=== PATIENT | male | born 1995 | race Caucasian/White ===

== ENCOUNTER 2019-11-24 09:20 | Outpatient (CLI) | payer BC, SELFPAY ==
--- NOTE | 2019-11-24 10:02 | MR_ITS ---
WS: [id number] MRI LUMBAR SPINE NONCONTRAST TECHNIQUE: Sagittal T1, T2 and STIR imaging. Axial T1 and T2 imaging. CLINICAL INFORMATION: HERNIATED LUMBAR DISC COMPARISON: None. FINDINGS: Mild lumbar curve. No acute compression. Disc bulging worse L4-L5 and L5-S1. Tiny annular tear at L4- 5. L1-L2: Normal. L2-L3: Mild annular bulging. Spinal canal and foramen are patent. Mild facet arthropathy. L3-L4: Mild annular bulging. Mild facet arthropathy. Slight narrowing of the right subarticular reces s. Mild right and no significant left foraminal narrowing. L4-L5: Central disc protrusion with a tiny annular tear. Mild central canal stenosis with impingement on the right greater than left subarticular recess and traversing L5 nerve roots. Mild right and no significant left foraminal narrowing. L5-S1: Prominent right pericentral disc protrusion. Additional Extruded disc fragment extending infer iorly to the S1-S2 level. Extruded disc material measures 2.5cm craniocaudal x 1.1 cm APx transverse 1.8 cm. Impingement on the right ventral thecal sac and traversing right S1 and S2 nerve roots. Mode rate to severe compression of the thecal sac at the S1 level. Mild to moderate right and no significa nt left foraminal narrowing. Mild facet arthropathy. Visualized pelvic bony structures: Normal. Paravertebral soft tissues: Normal. MR/MR lumbar spine wo con* [id number] IMPRESSION: 1. Right L5-S1 extruded disc fragment with inferior migration of disc material to the S1-S2 level. Extruded disc material measures 2.5 x 1.1 x 1.8 cm. This i mpinges the traversing right S1-S2 nerve roots with flattening of the thecal sa c with moderate to severe stenosis distally at the S1 level. 2. Additional broad-based central disc protrusion L5-S1 with moderate central canal stenosis and impingement on the right greater than left S1 nerve roots. 3. Annular bulging L3-4 with slight impingement on the traversing right L4 ner ve root. 4. Prominent central disc protrusion L4-5 with an annular tear and mild centra l canal stenosis. Impingement on the right greater than left traversing L5 nerv e roots.
== END 2019-11-24 09:21 | disposition home or self-care (01) ==
LOC: RADSHAW 09:26
PROVIDERS: Family Provider Family Medicine; PCP Family Medicine; Visit Provider Family Medicine
DX: M51.26 Other intervertebral disc displacement, lumbar region (principal); M51.27 Other intervertebral disc displacement, lumbosacral region
CPT/HCPCS: 72148